=== PATIENT | female | born 2000 | race Caucasian/White ===

== ENCOUNTER 2018-05-09 19:24 | Emergency (ER) | payer MEDICAID ==
--- NOTE | 2018-05-09 20:45 | ER Document Report ---
ED Medical Screen (RME) - General Chief Complaint: Leg Pain Stated Complaint: VAGINAL BLEEDING Time Seen by Provider: 05/09/18 20:40 Mode of Arrival: Ambulatory Information source: Patient Notes: 18-year-old female was noted to be presents with complaints of right lower extremity swelling. Patient moved down here 2 weeks ago from [place] by bus. Patient also notes she got a sunburn and the pain is worse in her foot and on her chaidez I have greeted and performed a rapid initial assessment of this patient. A comprehensive ED assessment and evaluation of the patient, analysis of test results and completion of the medical decision making process will be conducted by additional ED providers. PHYSICAL EXAMINATION: GENERAL: Well-appearing, well-nourished and in no acute distress. HEAD: Atraumatic, normocephalic. EYES: Pupils equal round extraocular movements intact, conjunctiva are normal. ENT: Nares patent NECK: Normal range of motion LUNGS: No respiratory distress Musculoskeletal: Normal range of motion NEUROLOGICAL: Bilateral peripheral edema lower extremities right worse than left PSYCH: Normal mood, normal affect. SKIN: Erythema of the bilateral anterior legs secondary to the first-degree sunburn TRAVEL OUTSIDE OF THE U.S. IN LAST 30 DAYS: No - Related Data Allergies/Adverse Reactions: bee venom protein (honey bee) Allergy (Verified 05/09/18 20:32) Cephalosporins Allergy (Verified 05/09/18 20:32) Penicillins Allergy (Verified 05/09/18 20:32) Physical Exam - Vital signs Vitals: Temp Pulse Resp BP Pulse Ox 98.8 F 124 H 20 108/54 L 97 05/09/18 19:30 05/09/18 19:30 05/09/18 19:30 05/09/18 19:30 05/09/18 19:30 Course - Vital Signs Vital signs: Temp Pulse Resp BP Pulse Ox 98.8 F 124 H 20 108/54 L 97 05/09/18 19:30 05/09/18 19:30 05/09/18 19:30 05/09/18 19:30 05/09/18 19:30
--- NOTE | 2018-05-09 21:35 | ER Document Report ---
ED Extremity Problem, Lower - General Chief Complaint: Leg Pain Stated Complaint: VAGINAL BLEEDING Time Seen by Provider: 05/09/18 20:40 Mode of Arrival: Ambulatory Notes: Patient is a 18 year old female, at 17 weeks gestation, that comes emergency department for chief complaint of right lower extremity swelling, swelling started over the past several days, patient also went to the beach about 4 days ago and got a bad sunburn on both legs. Patient denies shortness of breath, vaginal bleeding, abdominal cramping. Patient moved down here 2 weeks ago from [place], is not established with [facility] yet. She takes no daily medications. She denies smoking, history of blood clot. Patient states she has not felt baby moving this afternoon/evening, asking for Doppler. TRAVEL OUTSIDE OF THE U.S. IN LAST 30 DAYS: No - Related Data Allergies/Adverse Reactions: bee venom protein (honey bee) Allergy (Verified 05/09/18 20:32) Cephalosporins Allergy (Verified 05/09/18 20:32) Penicillins Allergy (Verified 05/09/18 20:32) Past Medical History - General Information source: Patient - Social History Smoking Status: Former Smoker Frequency of alcohol use: None Drug Abuse: None Lives with: Family Family History: Reviewed & Not Pertinent Patient has suicidal ideation: No Patient has homicidal ideation: No - Medical History Medical History: Negative Renal/ Medical History: Denies: Hx Peritoneal Dialysis Surgical Hx: Negative - Immunizations Immunizations up to date: Yes Hx Diphtheria, Pertussis, Tetanus Vaccination: Yes Review of Systems - Review of Systems Constitutional: No symptoms reported EENT: No symptoms reported Cardiovascular: See HPI Respiratory: No symptoms reported Gastrointestinal: No symptoms reported Genitourinary: No symptoms reported Female Genitourinary: No symptoms reported Musculoskeletal: See HPI Skin: See HPI Hematologic/Lymphatic: No symptoms reported Neurological/Psychological: No symptoms reported Physical Exam - Vital signs Vitals: Temp Pulse Resp BP Pulse Ox 98.8 F 124 H 20 108/54 L 97 05/09/18 19:30 05/09/18 19:30 05/09/18 19:30 05/09/18 19:30 05/09/18 19:30 - Notes Notes: GENERAL: Alert, interacts well. No acute distress. HEAD: Normocephalic, atraumatic. EYES: Pupils equal, round, and reactive to light. Extraocular movements intact. ENT: Oral mucosa moist, tongue midline. [Nares patent, no nasal septal hematoma , TM's intact.] NECK: Full range of motion. Supple. Trachea midline. LUNGS: Clear to auscultation bilaterally, no wheezes, rales, or rhonchi. No respiratory distress. HEART: Regular rate and rhythm. No murmur ABDOMEN: Soft, non-tender. Non-distended. Bowel sounds present in all 4 quadrants. EXTREMITIES: Moves all 4 extremities spontaneously. Normal distal neurovascular exam. Edema with pitting in the right leg, no significant edema in the left. No notable tenderness to the calf. Negative Homans sign. BACK: no cervical, thoracic, lumbar midline tenderness. No saddle anesthesia, normal distal neurovascular exam. NEUROLOGICAL: Alert and oriented x3. Normal speech. [cranial nerves II through XII grossly intact]. PSYCH: Normal affect, normal mood. SKIN: Sunburns noted with very erythematous skin but no blistering, induration, fluctuance, or evidence of infection. Some humphrey noted mainly over the face, back, and lower legs. Course - Re-evaluation Re-evalutation: Physical exam shows right lower extremity swelling with sunburn, no significant abnormality other than sunburn and minimal edema in the left lower extremity. No shortness of breath or chest pain. No abdominal pain or vaginal bleeding reported. heart tones in the 150s. Vital signs rechecked, initially patient was tachycardic, this resolved without intervention. Not tachycardic on my exam. Venous Doppler shows no clot or abnormality. Discussed results with patient. Discussed lower extremity swelling, recommendations, sunburn care, follow-up, and return precautions. Discussed this with significant other as well. They state understanding and agreement. - Vital Signs Vital signs: Temp Pulse Resp BP Pulse Ox 98.1 F 83 16 111/48 L 100 05/09/18 23:03 05/09/18 23:03 05/09/18 23:03 05/09/18 23:03 05/09/18 23:03 Discharge - Discharge Clinical Impression: Swelling of lower extremity, Sunburn Qualifiers: Weeks of gestation: unspecified Qualified Code(s): Z34.90 - Encounter for supervision of normal , unspecified, unspecified trimester Condition: Stable Disposition: HOME, SELF-CARE Additional Instructions: The ultrasound does not show clot or any obvious abnormality. The Doppler shows good heart tones. Elevate your legs, use topical therapies for sunburn, take Tylenol for pain. Symptoms should resolve with time. Follow-up with [facility] referral placed. Call for first appointment. Return if you worsen including developing fever, abdominal pain, vaginal bleeding, severe swelling, shortness of breath, or any other concerning or worsening symptoms. Referrals: [facility] [Provider Group] - Follow up as needed
--- NOTE | 2018-05-09 22:30 | RADIOLOGY REPORT (SQ) ---
EXAM DESCRIPTION: VENOUS UNILATERAL LOWER COMPLETED DATE/TIME: 05/09/2018 10:23 pm REASON FOR STUDY: RLE edema, COMPARISON: None. TECHNIQUE: Dynamic and static moy scale and color images acquired of the right leg venous system. S elected spectral images acquired with additional compression and augmentation maneuvers. The contrala teral common femoral vein and saphenofemoral junction were also imaged. Images stored on PACS. LIMITATIONS: None. FINDINGS: COMMON FEMORAL: Normal phasicity, compression and augmentation. No visualized echogenic ma terial on moy scale. No defects on color images. FEMORAL: Normal compression and augmentation. No visualized echogenic material on moy scale. No defe cts on color images. POPLITEAL: Normal compression, augmentation. No visualized echogenic material on moy scale. No defec ts on color images. CALF VESSELS: Normal compression, augmentation. No visualized echogenic material on moy scale. No de fects on color images. GSV and SSV: Normal compression, augmentation. No visualized echogenic material on moy scale. No def ects on color images. ANY DEEP VENOUS INSUFFICIENCY: Not evaluated. ANY EVIDENCE OF POPLITEAL CYST: No. OTHER: No other significant finding. CONTRALATERAL COMMON FEMORAL VEIN AND SAPHENOFEMORAL JUNCTION: Normal phasicity, compression and augmentation. No visualized echogenic material on moy scale. No de fects on color images. IMPRESSION: NO EVIDENCE DVT OR SVT IN THE RIGHT LEG. TECHNICAL DOCUMENTATION: JOB ID: [id number] [employer]- All Rights Reserved Reading location - IP/workstation name: [email or web address]
[2018-05-09 23:04] VITALS: BP 111/48
== END 2018-05-09 23:05 | disposition home or self-care (01) ==
LOC: ER 19:24
DX: Z34.90 Encounter for supervision of normal pregnancy, unspecified, unspecified trimester (principal); L55.9 Sunburn, unspecified; M79.89 Other specified soft tissue disorders; Z3A.17 17 weeks gestation of pregnancy; Z87.891 Personal history of nicotine dependence
CPT/HCPCS: 93971; 99284

== ENCOUNTER 2018-10-10 18:39 | Outpatient (CLI) | payer MEDICAID ==
[2018-10-10 19:46] LABS: APPEARANCE,URINE SLIGHTLY-CLOUDY; BILIRUBIN,URINE NEGATIVE (NEGATIVE); COLOR,URINE AMBER; GLUCOSE, URINE NEGATIVE (NEGATIVE); KETONES,URINE NEGATIVE (NEGATIVE); LEUKOCYTE ESTERASE,URINE NEGATIVE (NEGATIVE); NITRITE,URINE NEGATIVE (NEGATIVE); PROTEIN,URINE 30 mg/dL (NEGATIVE); URINE SPECIFIC GRAVITY 1.031
[2018-10-10 20:00] LABS: URINE AMPHETAMINES SCREEN NEGATIVE; URINE BARBITURATES SCREEN NEGATIVE; URINE BENZODIAZEPINES SCREEN NEGATIVE; URINE COCAINE SCREEN NEGATIVE; URINE MARIJUANA (THC) SCREEN NEGATIVE; URINE METHADONE SCREEN NEGATIVE; URINE PHENCYCLIDINE SCREEN NEGATIVE
[2018-10-10] MEDS ORDERED: HYDROXYZINE PAMOATE 50 MG CAPSULE ONE (21:17)
[2018-10-10] MEDS ORDERED: HYDROXYZINE PAMOATE 50 MG CAPSULE PO ONE (21:25)
--- NOTE | 2018-10-10 21:48 | Non Stress Test Report ---
Non Stress Test Datetime Report Generated by CPN: 10/10/2018 21:48 DEMOGRAPHIC EGA NST: 38.3 INDICATION Indication for Study: Ordered by Provider MONITORING Monitor Explained: Monitor Explained; Test Explained; Patient Verbalized Understanding Time on Monitor: 10/10/2018 19:27 Time off Monitor: 10/10/2018 20:04 NST Duration: 37 NST INTERVENTIONS NST Interventions: PO Hydration; Reposition Patient Physician Notified NST: Dr. Wood BABY A: [id number] BABY A Movement : Present Contraction Frequency : none FHR Baseline : 140 Accelerations : 15X15 Decelerations : None Variability : Moderate 6-25bpm NST Review: Meets Criteria for Reactive NST NST Review and Verified By : LISET ISBELL Results: Reactive NST REPORT Report Trigger: Send Report
== END 2018-10-10 21:23 | disposition home or self-care (01) ==
LOC: LC 18:39
PROVIDERS: ATTEND Obstetrics & Gynecology
PROC: 4A1HXCZ Monitoring of Products of Conception, Cardiac Rate, External Approach (ICD-10-PCS; principal; 2018-10-10)
DX: Z34.93 Encounter for supervision of normal pregnancy, unspecified, third trimester (principal); Z3A.38 38 weeks gestation of pregnancy
CPT/HCPCS: 59025; 81005; 80307; J3490

== ENCOUNTER 2018-10-19 07:21 | Outpatient (CLI) | payer MEDICAID ==
[2018-10-19 08:42] LABS: URINE AMPHETAMINES SCREEN NEGATIVE; URINE BARBITURATES SCREEN NEGATIVE; URINE BENZODIAZEPINES SCREEN NEGATIVE; URINE COCAINE SCREEN NEGATIVE; URINE MARIJUANA (THC) SCREEN NEGATIVE; URINE METHADONE SCREEN NEGATIVE; URINE PHENCYCLIDINE SCREEN NEGATIVE
--- NOTE | 2018-10-19 08:48 | Non Stress Test Report ---
Non Stress Test Datetime Report Generated by CPN: 10/19/2018 08:48 DEMOGRAPHIC EGA NST: 39.5 INDICATION Indication for Study: Other Indication for Study (NST) Other: LABOR CHECK MONITORING Monitor Explained: Monitor Explained; Test Explained; Patient Verbalized Understanding Time on Monitor: 10/19/2018 07:40 Time off Monitor: 10/19/2018 08:41 NST Duration: 61 NST INTERVENTIONS NST Interventions: PO Hydration; Reposition Patient BABY A: [id number] BABY A Movement : Present Contraction Frequency : 4-7 FHR Baseline : 135 Accelerations : 15X15 Decelerations : None Variability : Moderate 6-25bpm NST Review: Meets Criteria for Reactive NST NST Review and Verified By : Thu Camp RNC NST Results: Reactive NST REPORT Report Trigger: Send Report
== END 2018-10-19 08:49 | disposition home or self-care (01) ==
LOC: LC 07:21
PROVIDERS: ATTEND Obstetrics & Gynecology
PROC: 4A1HXCZ Monitoring of Products of Conception, Cardiac Rate, External Approach (ICD-10-PCS; principal; 2018-10-19)
DX: O47.1 False labor at or after 37 completed weeks of gestation (principal); Z3A.39 39 weeks gestation of pregnancy
CPT/HCPCS: 59025; 80307

== ENCOUNTER 2018-12-29 13:31 | Emergency (ER) | payer MEDICAID ==
[2018-12-29 13:50] VITALS: BP 109/57
[2018-12-29] MEDS ORDERED: CLINDAMYCIN HCL 150 MG CAPSULE PO ONE (15:22)
[2018-12-29] MEDS ORDERED: IBUPROFEN 800 MG TABLET PO ONE (15:22)
--- NOTE | 2018-12-29 15:27 | ER Document Report ---
ED Oral Problem - General Chief Complaint: Toothache Stated Complaint: MOUTH PAIN Time Seen by Provider: 12/29/18 14:37 Mode of Arrival: Ambulatory Information source: Patient Notes: 18-year-old female presented to ED for complaint of dental pain to the upper and lower teeth. The front 4 teeth on the upper jaw a very decayed with no enamel at the gum lines. She states she called the dentist and they told her she needed to come in and get antibiotics before she came in to the dentist. She has a tooth to the lower left jaw it is also has no an animal. 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 Patient is alert oriented respirations regular and unlabored speaking in full sentences. TRAVEL OUTSIDE OF THE U.S. IN LAST 30 DAYS: No - HPI Patient complains to provider of: Toothache Onset: Other - Couple weeks Onset: Gradual Quality of pain: Sharp, Throbbing Severity: Moderate Pain Level: 4 Associated symptoms: Jaw pain, Toothache Worsened by: Cold Relieved by: Nothing Similar symptoms previously: Yes Recently seen / treated by doctor/dentist: No - Related Data Allergies/Adverse Reactions: bee venom protein (honey bee) Allergy (Verified 12/29/18 13:45) Cephalosporins Allergy (Verified 12/29/18 13:45) Penicillins Allergy (Verified 12/29/18 13:45) peroxcide Allergy (Uncoded 12/29/18 13:45) Past Medical History - General Information source: Patient - Social History Smoking Status: Never Smoker Chew tobacco use (# tins/day): No Frequency of alcohol use: None Drug Abuse: None Lives with: Family Family History: Reviewed & Not Pertinent Patient has suicidal ideation: No Patient has homicidal ideation: No - Past Medical History Cardiac Medical History: Reports: None Pulmonary Medical History: Reports: None EENT Medical History: Reports: Other - Dental pain Neurological Medical History: Reports: None Endocrine Medical History: Reports: None Renal/ Medical History: Reports: None Malignancy Medical History: Reports: None GI Medical History: Reports: None Musculoskeletal Medical History: Reports None Skin Medical History: Reports None Psychiatric Medical History: Reports: None Traumatic Medical History: Reports: None Infectious Medical History: Reports: None Surgical Hx: Negative Past Surgical History: Reports: None - Immunizations Immunizations up to date: Yes Hx Diphtheria, Pertussis, Tetanus Vaccination: Yes Review of Systems - Review of Systems Constitutional: No symptoms reported EENT: Ear pain, Mouth pain, Mouth swelling, Dental problem Cardiovascular: No symptoms reported Respiratory: No symptoms reported Gastrointestinal: No symptoms reported Genitourinary: No symptoms reported Female Genitourinary: No symptoms reported Musculoskeletal: No symptoms reported Skin: No symptoms reported Hematologic/Lymphatic: No symptoms reported Neurological/Psychological: No symptoms reported Physical Exam - Vital signs Vitals: Temp Pulse Resp BP Pulse Ox 98.7 F 89 16 109/57 L 97 12/29/18 13:48 12/29/18 13:48 12/29/18 13:48 12/29/18 13:48 12/29/18 13:48 Interpretation: Normal - General General appearance: Appears well, Alert - HEENT Head: Normocephalic, Atraumatic Eyes: Normal Pupils: PERRL Ears: Normal External canal: Normal Tympanic membrane: Normal Sinus: Normal Nasal: Normal Mouth/Lips: Caries Mucous membranes: Normal Teeth diagram: 1 - 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 with mild swelling to the gums 2 - Loss of enamel to the tooth with gum disease and mild swelling to the gums Pharynx: Normal Neck: Anterior cervical chain - Respiratory Respiratory status: No respiratory distress Chest status: Nontender Breath sounds: Normal Chest palpation: Normal - Cardiovascular Rhythm: Regular Heart sounds: Normal auscultation Murmur: No - Abdominal Inspection: Normal Distension: No distension Bowel sounds: Normal Tenderness: Nontender Organomegaly: No organomegaly - Back Back: Normal, Nontender - Extremities General upper extremity: Normal inspection, Nontender, Normal color, Normal ROM, Normal temperature General lower extremity: Normal inspection, Nontender, Normal color, Normal ROM, Normal temperature, Normal weight bearing. No: Rafael's sign - Neurological Neuro grossly intact: Yes Cognition: Normal Orientation: AAOx4 Kathya Coma Scale Eye Opening: Spontaneous Kathya Coma Scale Verbal: Oriented Kathya Coma Scale Motor: Obeys Commands Kathya Coma Scale Total: 15 Speech: Normal Motor strength normal: LUE, RUE, LLE, RLE Sensory: Normal - Psychological Associated symptoms: Normal affect, Normal mood - Skin Skin Temperature: Warm Skin Moisture: Dry Skin Color: Normal Course - Re-evaluation Re-evalutation: 12/29/18 15:26 Presentation is most consistent with likely an infected tooth. Airway is patent. Vitals within normal limits. Patient is able swallow without any difficulty. There is no significant facial swelling. No evidence of Mohit angina, apical abscess, or airway obstruction. Patient will be started on antibiotics. I've instructed to follow-up with dentistry as earliest ability for definitive management. At this time will discharge with return precautions and follow-up recommendations. Verbal discharge instructions given a the bedside and opportunity for questions given. Medication warnings reviewed. Patient is in agreement with this plan and has verbalized understanding of return precautions and the need for primary care follow-up in the next 24-72 hours. - Vital Signs Vital signs: Temp Pulse Resp BP Pulse Ox 98.7 F 89 16 109/57 L 97 12/29/18 13:48 12/29/18 13:48 12/29/18 13:48 12/29/18 13:48 12/29/18 13:48 Discharge - Discharge Clinical Impression: Pain due to dental caries Condition: Stable Disposition: HOME, SELF-CARE Instructions: Family Physicians / Practices Additional Instructions: TOOTHACHE: Your pain is due to dental decay. The tooth must be repaired in order for you to feel better. You will, therefore, be referred to a dentist. We do not have dentists on the staff at [facility]. Severe swelling or drainage around a tooth usually means a dental abscess. This also requires evaluation and treatment by the dentist, but antibiotics may be prescribed while awaiting dental treatment. You should be rechecked immediately if you develop major swelling of the face, increasing pain, a lump in the jaw or gums, headache, difficulty swallowing, or fever. CLINDAMYCIN: You have been given a prescription for the antibiotic clindamycin. It is often prescribed for infections in the mouth, such as dental infections or abscesses, and for skin infections due to MRSA. It's important that you take all the medication, unless instructed otherwise by your physician. Failure to complete the entire course can result in relapse of your condition. Common side effects of antibiotics include nausea, intestinal cramping, or diarrhea. Women may develop vaginal yeast infections, and babies can get yeast (thrush) in the mouth following the use of antibiotics. Contact your physician if you develop significant side effects from this medication. Allergy to this antibiotic can result in hives, wheezing, faintness, or itching. If symptoms of allergy occur, stop the medication and call the doctor. Ibuprofen Ibuprofen is an excellent, safe drug for pain control. In addition, it has potent antiinflammatory effects which are beneficial, especially in the treatment of injuries, arthritis, or tendonitis. It's best to take ibuprofen with food. Persons with ulcer disease or allergy to aspirin should notify their physician of this before taking ibuprofen. Take the medication exactly as prescribed. Don't take additional doses unless instructed to do so by your doctor. If you develop wheezing, shortness of breath, hives, faintness, stomach pain, vomiting, or dark black stools, return for re-evaluation at once. Salt and soda solution 1 quart of water 1 tablespoon of salt 1 teaspoon of baking soda Mixed 3 ingredients together and boil for 1 minute Placed in a covered quart jar Use 1/2 ounce of cold solution to gargle 3 times a day FOLLOW-UP CARE: You have been referred for follow-up care to the dentists listed below. Call the dentists office for an appointment as you were instructed or within the next two days. If you experience worsening or a significant change in your symptoms, notify the physician immediately or return to the Emergency Department at any time for re-evaluation. [facility] [address] [place], [place] [facility] [address] [place] [address] [facility] [address] [facility] [address] [facility] [address] [facility] [place] [address] [facility]. [email or web address] [address] [place] [address] Thursday- 8:00am to 5:00 pm Will see patients from other [facility]. Charges based on income and family size and accepts Medicare, Medicaid, and Insurances Will pull molars [facility] [address] [address] Hours of Operation 8:00 am - 4:30 pm weekdays The following dental offices accept Medicaid: [facility] [address] Dr. Daniels Dr. Benavides Dr. Zambrano Isael Melendez, Steven, and Francia oral surgery Dr. Suero ([place]) Dr. Aquino ([place]) [facility] Drs. Lang ([place]) Dr. Dmuas ([place]) [facility] Dr. Riley ([place]) Drs. Xavier and ([place]) Medicaid Care Line Prescriptions: Clindamycin HCl 300 mg PO Q6 #28 capsule
== END 2018-12-29 15:38 | disposition home or self-care (01) ==
LOC: ER 13:31
DX: K02.9 Dental caries, unspecified (principal); K06.9 Disorder of gingiva and edentulous alveolar ridge, unspecified; K08.89 Other specified disorders of teeth and supporting structures; Z91.030 Bee allergy status; Z88.1 Allergy status to other antibiotic agents; Z88.0 Allergy status to penicillin; Z88.8 Allergy status to other drugs, medicaments and biological substances
CPT/HCPCS: 99282; J3490 ×2

== ENCOUNTER 2019-03-17 16:32 | Emergency (ER) | payer SELFPAY ==
[2019-03-17 16:41] VITALS: BP 113/55
--- NOTE | 2019-03-17 17:14 | ER Document Report ---
HPI - HPI Patient complains to provider of: Dental decay Time Seen by Provider: 03/17/19 17:07 Onset: Other Onset/Duration: Persistent Severity: Severe Pain Level: 5 Context: She presents to the emergency department with widespread dental decay. Reports increased pain to her front teeth. She reports pain with hot or cold. She denies fever vomiting diarrhea. She reports she has contacted the [facility] and they have scheduled her appointment at the end of this month. But she cannot take the pain. She denies fever vomiting diarrhea. Associated Symptoms: None Exacerbated by: Other - heat/cool sensitive Relieved by: Denies Similar symptoms previously: Yes Recently seen / treated by doctor: No - CONSTITUTIONAL Constitutional: DENIES: Fever, Chills - EENT EENT: DENIES: Sore Throat, Ear Pain, Eye problems - NEURO Neurology: DENIES: Headache, Weakness, Vision blurred, Dizzinesss / Vertigo - CARDIOVASCULAR Cardiovascular: DENIES: Chest pain - RESPIRATORY Respiratory: DENIES: Trouble Breathing, Coughing - GASTROINTESTINAL Gastrointestinal: DENIES: Abdominal Pain, Black / Bloody Stools - URINARY Urinary: DENIES: Dysuria, Urgency, Frequency - REPRODUCTIVE Reproductive: DENIES: : - MUSCULOSKELETAL Musculoskeletal: DENIES: Extremity pain Past Medical History - General Information source: Patient - Social History Smoking Status: Never Smoker Chew tobacco use (# tins/day): No Frequency of alcohol use: None Drug Abuse: None Lives with: Family Family History: Reviewed & Not Pertinent Patient has suicidal ideation: No Patient has homicidal ideation: No - Medical History Medical History: Negative Renal/ Medical History: Denies: Hx Peritoneal Dialysis Surgical Hx: Negative - Immunizations Immunizations up to date: Yes Hx Diphtheria, Pertussis, Tetanus Vaccination: Yes Vertical Provider Document - CONSTITUTIONAL Agree With Documented VS: Yes Exam Limitations: No Limitations General Appearance: WD/WN, No Apparent Distress - INFECTION CONTROL TRAVEL OUTSIDE OF THE U.S. IN LAST 30 DAYS: No - HEENT HEENT: Atraumatic, Normocephalic Mouth Diagram: 1 - Widespread dental decay opens mouth without any problems open wide no Mohit's no erythema swelling or pustule - RESPIRATORY Respiratory: Breath Sounds Normal, No Respiratory Distress - CARDIOVASCULAR Cardiovascular: Regular Rate - MUSCULOSKELETAL/EXTREMETIES Musculoskeletal/Extremeties: MAEW - NEURO Level of Consciousness: Awake, Alert, Appropriate Motor/Sensory: No Motor Deficit - DERM Integumentary: Warm, Dry Course - Re-evaluation Re-evalutation: 03/17/19 19:36 [facility] pharmacy contacted for patient to confirm lujan of clindamycin. Patient was instructed on the importance of keeping her follow-up appointment with dental at the end of the month. She verbalized understanding to all instructions. Dictation of this chart was performed using voice recognition software; therefore, there may be some unintended grammatical errors. - Vital Signs Vital signs: Temp Pulse Resp BP Pulse Ox 98.6 F 85 16 113/55 L 100 03/17/19 16:38 03/17/19 16:38 03/17/19 16:38 03/17/19 16:38 03/17/19 16:38 Discharge - Discharge Clinical Impression: Dental decay Condition: Stable Disposition: HOME, SELF-CARE Instructions: Acetaminophen with Codeine ([facility]), [facility], Clindamycin ([facility]), Toothache ([facility]) Additional Instructions: *You have been evaluated for dental pain *Take medications as prescribed *Follow up with the dentist as scheduled *Return to ED for worsening condition, changes, needs Prescriptions: Acetaminophen with Codeine [Tylenol #3 Tablet] 1 each PO Q4HP PRN #20 tablet PRN Reason: Clindamycin HCl 300 mg PO TID #30 capsule
== END 2019-03-17 17:20 | disposition home or self-care (01) ==
LOC: ER 16:32
DX: K02.9 Dental caries, unspecified (principal); K08.89 Other specified disorders of teeth and supporting structures
CPT/HCPCS: 99282

== ENCOUNTER 2019-04-18 15:46 | Emergency (ER) | payer SELFPAY ==
[2019-04-18 15:59] VITALS: BP 149/74
[2019-04-18 17:19] LABS: APPEARANCE,URINE SLIGHTLY-CLOUDY; BILIRUBIN,URINE NEGATIVE (NEGATIVE); COLOR,URINE YELLOW; GLUCOSE, URINE NEGATIVE (NEGATIVE); KETONES,URINE NEGATIVE (NEGATIVE); LEUKOCYTE ESTERASE,URINE SMALL (NEGATIVE); NITRITE,URINE NEGATIVE (NEGATIVE); PROTEIN,URINE NEGATIVE (NEGATIVE); URINE SPECIFIC GRAVITY 1.024; UROBILINOGEN,URINE NEGATIVE mg/dL (<2.0)
[2019-04-18] MEDS ORDERED: ONDANSETRON 4 MG TAB.RAPDIS ONE (18:35)
[2019-04-18] MEDS ORDERED: ONDANSETRON 4 MG TAB.RAPDIS PO ONE (18:35)
--- NOTE | 2019-04-18 18:36 | ER Document Report ---
ED Medical Screen (RME) - General Chief Complaint: Abdominal Pain Stated Complaint: ABDOMINAL PAIN Time Seen by Provider: 04/18/19 18:30 TRAVEL OUTSIDE OF THE [place] IN LAST 30 DAYS: No - HPI Notes: 04/18/19 18:34 Patient is a 19-year-old female G6, P4 with 2 miscarriages who presents complaining of right upper quadrant abdominal pain, nausea/vomiting over the past couple days. Patient states that last episode of vomiting was yesterday. She has been nauseated all day long. Patient does have a Mirena in place and wanted checked for as well. She did have a home test that was positive. She is otherwise urinating normally and having normal bowel movements. No other vaginal discharge, odor, or bleeding. P.o. intake does make the pain worse. Denies GONZALEZ, fever, neck pain, URI, CP, SOB, dysuria, back pain, or rash. I have treated and performed a rapid initial assessment of this patient. A comprehensive ED assessment and evaluation of the patient, analysis of test results and completion of medical decision making process will be conducted by additional ED providers. PHYSICAL EXAMINATION: GENERAL: Well-appearing, well-nourished and in no acute distress. A&Ox4. Answe rs questions appropriately. LUNGS: Breath sounds clear to auscultation bilaterally and equal. No wheezes rales or rhonchi. HEART: Regular rate and rhythm without murmurs, rubs, gallops. ABDOMEN: Soft, nondistended abdomen. No guarding, no rebound. Normal bowel sounds present. No CVA tenderness bilaterally. + RUQ tenderness (cannot elicit thorough abd exam w/o bed, however). - Related Data Allergies/Adverse Reactions: bee venom protein (honey bee) Allergy (Verified 04/18/19 18:31) Cephalosporins Allergy (Verified 04/18/19 18:31) Penicillins Allergy (Verified 04/18/19 18:31) peroxcide Allergy (Uncoded 04/18/19 18:31) Past Medical History Renal/ Medical History: Denies: Hx Peritoneal Dialysis - Immunizations Immunizations up to date: Yes Hx Diphtheria, Pertussis, Tetanus Vaccination: Yes Physical Exam - Vital signs Vitals: Temp Pulse Resp BP Pulse Ox 98.3 F 105 H 18 149/74 H 98 04/18/19 15:58 04/18/19 15:58 04/18/19 15:58 04/18/19 15:58 04/18/19 15:58 Course - Vital Signs Vital signs: Temp Pulse Resp BP Pulse Ox 98.3 F 105 H 18 149/74 H 98 04/18/19 15:58 04/18/19 15:58 04/18/19 15:58 04/18/19 15:58 04/18/19 15:58 - Laboratory Laboratory results interpreted by me: 04/18/19 16:55 Ur Leukocyte Esterase SMALL H
--- NOTE | 2019-04-18 19:17 | RADIOLOGY REPORT (SQ) ---
EXAM DESCRIPTION: U/S ABDOMEN LIMITED W/O DOP COMPLETED DATE/TIME: 04/18/2019 7:04 pm REASON FOR STUDY: RUQ pain, n/v COMPARISON: None. TECHNIQUE: Dynamic and static grayscale images acquired of the right upper quadrant and recorded on PACS. Additional selected color Doppler and spectral images recorded. LIMITATIONS: Study limited due to acoustical interference from fat or from air in the bowel. FINDINGS: PANCREAS: Visualized pancreas and duct normal. Parts of pancreas poorly seen secondary to acoustical interference from fat or from air in the bowel. LIVER: No masses. Echotexture normal. LIVER VASCULATURE: Normal directional flow of the main portal vein and hepatic veins. GALLBLADDER: No stones. Normal wall thickness. No pericholecystic fluid. ULTRASOUND-DETECTED STALLINGS'S SIGN: Negative. INTRAHEPATIC DUCTS AND COMMON DUCT: CBD and intrahepatic ducts normal caliber. No filling defects. INFERIOR VENA CAVA: Normal flow. AORTA: No aneurysm. RIGHT KIDNEY: Normal size. Normal echogenicity. No solid or suspicious masses. No hydronephrosis. No calcifications. PERITONEAL CAVITY AND RIGHT PLEURAL SPACE: No ascites or effusions. OTHER: No other significant finding. IMPRESSION: NORMAL RIGHT UPPER QUADRANT ULTRASOUND. PANCREAS PARTIALLY OBSCURED BY GAS. TECHNICAL DOCUMENTATION: JOB ID: [id number] 2005 [employer]- All Rights Reserved Reading location - IP/workstation name: [email or web address]
[2019-04-18 19:30] LABS: ABSOLUTE BASOPHILS # (AUTO) 0.1 10^3/uL (0.0-0.2); ABSOLUTE LYMPHOCYTES (AUTO) 2.2 10^3/uL (0.5-4.7); ABSOLUTE MONOCYTES (AUTO) 0.4 10^3/uL (0.1-1.4); ABSOLUTE NEUT (AUTO) 7.6 10^3/uL (1.7-8.2); BASOPHILS % (AUTO) 0.7 % (0-2); EOSINOPHILS % (AUTO) 0.4 % (0-6); HEMATOCRIT 36.6 % (36.0-47.0); HEMOGLOBIN 11.8 g/dL (12.0-15.5); LYMPHOCYTES % (AUTO) 21.1 % (13-45); MEAN CORPUSCULAR HEMOGLOBIN 23.2 pg (27.0-33.4); MEAN CORPUSCULAR HGB CONC 32.2 g/dL (32.0-36.0); MEAN CORPUSCULAR VOLUME 72 fl (80-97); PLATELET COUNT 523 10^3/uL (150-450); RED BLOOD COUNT 5.08 10^6/uL (3.72-5.28); RED CELL DISTRIBUTION WIDTH 14.9 % (11.5-14.0); SEGMENTED NEUTROPHILS % (AUTO) 73.8 % (42-78); TOTAL CELLS COUNTED % (AUTO) 100 %; WHITE BLOOD COUNT 10.3 10^3/uL (4.0-10.5)
[2019-04-18 19:45] LABS: ALANINE AMINOTRANSFERASE 34 U/L (9-52); ALBUMIN 4.6 g/dL (3.5-5.0); ALKALINE PHOSPHATASE 75 U/L (38-126); ANION GAP 12 (5-19); ASPARTATE AMINO TRANSFERASE 28 U/L (14-36); BILIRUBIN,DIRECT 0.3 mg/dL (0.0-0.4); BILIRUBIN,TOTAL 0.4 mg/dL (0.2-1.3); BLOOD UREA NITROGEN 16 mg/dL (7-20); CALCIUM 9.9 mg/dL (8.4-10.2); CARBON DIOXIDE 27 mmol/L (22-30); CHLORIDE 105 mmol/L (98-107); GLUCOSE 98 mg/dL (75-110); LIPASE 87.7 U/L (23-300); POTASSIUM 4.5 mmol/L (3.6-5.0); SODIUM 144.1 mmol/L (137-145); TOTAL PROTEIN 7.9 g/dL (6.3-8.2)
== END 2019-04-18 19:45 | disposition left against medical advice (07) ==
LOC: ER 15:46
DX: Z53.21 Procedure and treatment not carried out due to patient leaving prior to being seen by health care provider (principal); R10.9 Unspecified abdominal pain; R10.11 Right upper quadrant pain; R11.2 Nausea with vomiting, unspecified
CPT/HCPCS: 99284; 36415; 83690; 85025; 81025; 80053; 81001; 76705; S0119

== ENCOUNTER 2019-07-03 17:37 | Emergency (ER) | payer SELFPAY ==
[2019-07-03] MEDS ORDERED: CLINDAMYCIN HCL 150 MG CAPSULE PO ONE (19:09)
--- NOTE | 2019-07-03 19:13 | ER Document Report ---
HPI - HPI Time Seen by Provider: 07/03/19 18:50 Pain Level: 5 Context: Patient is a 19-year-old female who presents to the emergency department with a chief complaint of dental pain. Patient reports left upper dental pain for 3 to 4 days. Patient denies facial swelling or fever. Patient states she has been told that she needs to have multiple teeth removed but requires an antibiotic initially. Patient states she plans to follow-up with the [facility]. Patient reports she is taking clindamycin for dental infections in the past. Patient denies difficulty swallowing. Patient reports a history of poor dental decay and dental caries. - REPRODUCTIVE LMP: May 2018 Reproductive: DENIES: : Past Medical History - General Information source: Patient - Social History Smoking Status: Unknown if Ever Smoked Lives with: Spouse/Significant other Family History: Reviewed & Not Pertinent - Past Medical History Cardiac Medical History: Reports: None Pulmonary Medical History: Reports: None EENT Medical History: Reports: None Neurological Medical History: Reports: None Endocrine Medical History: Reports: None Renal/ Medical History: Reports: None. Denies: Hx Peritoneal Dialysis Malignancy Medical History: Reports: None GI Medical History: Reports: None Musculoskeletal Medical History: Reports None Skin Medical History: Reports None Psychiatric Medical History: Reports: None Traumatic Medical History: Reports: None Infectious Medical History: Reports: None Surgical Hx: Negative - Immunizations Immunizations up to date: Yes Hx Diphtheria, Pertussis, Tetanus Vaccination: Yes Vertical Provider Document - CONSTITUTIONAL Agree With Documented VS: Yes Exam Limitations: No Limitations General Appearance: No Apparent Distress - INFECTION CONTROL TRAVEL OUTSIDE OF THE [place] IN LAST 30 DAYS: No - HEENT HEENT: Atraumatic, Normocephalic Mouth Diagram: 1 - Patient has widespead dental decay, + broken tooth noted to the area with erythema noted to the gumline. No obvious abscess. - NECK Neck: Normal Inspection, Supple - RESPIRATORY Respiratory: Breath Sounds Normal, No Respiratory Distress - CARDIOVASCULAR Cardiovascular: Regular Rate, Regular Rhythm - GI/ABDOMEN Gastrointestinal: Abdomen Soft, Abdomen Non-Tender - MUSCULOSKELETAL/EXTREMETIES Musculoskeletal/Extremeties: FROM, No Edema - NEURO Level of Consciousness: Awake, Alert, Appropriate - DERM Integumentary: Warm, Dry, No Rash Course - Vital Signs Vital signs: Temp Pulse Resp BP Pulse Ox 98.2 F 89 20 115/59 L 99 07/03/19 17:41 07/03/19 17:41 07/03/19 17:41 07/03/19 17:41 07/03/19 17:41 Discharge - Discharge Clinical Impression: Dental infection, Dental caries Condition: Stable Disposition: HOME, SELF-CARE Instructions: Clindamycin ([facility]) Additional Instructions: Today you are seen in the emergency department for dental infection. At this time there is no obvious signs of an abscess that needs to be drained. You will be placed on clindamycin which is an antibiotic. You have stated that you been on this antibiotic before with no allergic reaction. Please take this medication for its full course. Please return to the emergency department if you develop fever, worsening pain, facial swelling. Please follow-up with the [facility] dental clinic. Dental Infection or Abscess You have an infection, perhaps an abscess (pus formation) of the gum around one of your teeth, which is probably decayed. If there is an abscess, it may drain on its own or it may need to be opened or lanced. Severe swelling or drainage around a tooth usually means a deep dental abscess which usually requires evaluation and treatment by a dentist or oral surgeon. Antibiotics may be prescribed while awaiting dental treatment. If you develop high fever with chills, worsening pain, or increasing swelling in the area, see a dentist or oral surgeon immediately or return to the Emergency Department immediately. Prescriptions: Clindamycin HCl 300 mg PO TID 10 Days #30 capsule Forms: Smoking Cessation Education Referrals: [facility] [Provider Group] - Follow up as needed [facility] [Provider Group] - Follow up as needed
[2019-07-03 19:26] VITALS: BP 118/72
== END 2019-07-03 19:28 | disposition home or self-care (01) ==
LOC: ER 17:37
DX: K04.7 Periapical abscess without sinus (principal); K02.9 Dental caries, unspecified
CPT/HCPCS: 99282

== ENCOUNTER 2020-01-01 20:58 | Emergency (ER) | payer SELFPAY ==
[2020-01-01 21:14] VITALS: BP 120/71
== END 2020-01-01 23:45 | disposition left against medical advice (07) ==
LOC: ER 20:58
DX: Z53.21 Procedure and treatment not carried out due to patient leaving prior to being seen by health care provider (principal); J02.9 Acute pharyngitis, unspecified

== ENCOUNTER 2020-01-17 18:55 | Emergency (ER) | payer SELFPAY ==
--- NOTE | 2020-01-17 20:39 | ER Document Report ---
ED Medical Screen (RME) - General Chief Complaint: Sore Throat Stated Complaint: SORE THROAT,FEVER,LIGHTHEADED Time Seen by Provider: 01/17/20 20:34 Mode of Arrival: Ambulatory Information source: Patient Notes: 19-year-old female presents with complaints of cold symptoms cough congestion chest feels heavy sore throat for the past few days. No complaints of fever vomiting diarrhea. Did not receive the flu vaccine. Patient speaks in a clear voice good airway. No known exposure to strep. I have greeted and performed a rapid initial assessment of this patient. A comprehensive ED assessment and evaluation of the patient, analysis of test results and completion of the medical decision making process will be conducted by additional ED providers. TRAVEL OUTSIDE OF THE [place] IN LAST 30 DAYS: No - Related Data Allergies/Adverse Reactions: bee venom protein (honey bee) Allergy (Verified 04/18/19 18:31) Cephalosporins Allergy (Verified 04/18/19 18:31) Penicillins Allergy (Verified 04/18/19 18:31) peroxcide Allergy (Uncoded 04/18/19 18:31) Past Medical History Renal/ Medical History: Denies: Hx Peritoneal Dialysis - Immunizations Immunizations up to date: Yes Hx Diphtheria, Pertussis, Tetanus Vaccination: Yes Physical Exam - Vital signs Vitals: Temp Pulse Resp BP Pulse Ox 99.1 F 112 H 16 120/76 98 01/17/20 18:59 01/17/20 18:59 01/17/20 18:59 01/17/20 18:59 01/17/20 18:59 Course - Vital Signs Vital signs: Temp Pulse Resp BP Pulse Ox 99.1 F 112 H 16 120/76 98 01/17/20 18:59 01/17/20 18:59 01/17/20 18:59 01/17/20 18:59 01/17/20 18:59
[2020-01-17 21:05] LABS: APPEARANCE,URINE SLIGHTLY-CLOUDY; BILIRUBIN,URINE NEGATIVE (NEGATIVE); COLOR,URINE YELLOW; GLUCOSE, URINE NEGATIVE (NEGATIVE); KETONES,URINE NEGATIVE (NEGATIVE); LEUKOCYTE ESTERASE,URINE TRACE (NEGATIVE); NITRITE,URINE NEGATIVE (NEGATIVE); PROTEIN,URINE NEGATIVE (NEGATIVE); URINE SPECIFIC GRAVITY 1.027
[2020-01-17 21:06] LABS: ADD MANUAL MICROSCOPIC YES
--- NOTE | 2020-01-17 21:19 | RADIOLOGY REPORT (SQ) ---
EXAM DESCRIPTION: XR CHEST 2 VIEWS COMPLETED DATE/TME: 01/17/2020 20:37 CLINICAL HISTORY: 19 years, Female, cough COMPARISON: None. NUMBER OF VIEWS: 2 TECHNIQUE: Frontal and lateral radiographs were obtained LIMITATIONS: None. FINDINGS: Cardiac and mediastinal contours are normal. Lungs are overall clear. No pleural effusion or pneumothorax. IMPRESSION: No acute disease. copyright 2010 [employer]- All Rights Reserved
[2020-01-17 21:21] LABS: A TYPE INFLUENZA AG NEGATIVE (NEGATIVE); B INFLUENZA AG NEGATIVE (NEGATIVE)
[2020-01-17] MEDS ORDERED: AMOXICILLIN TRIHYDRATE 500 MG CAPSULE PO ONE (21:59)
[2020-01-17] MEDS ORDERED: DEXAMETHASONE SOD PHOS INJ 10 MG/1 ML VIAL IM ONE (21:59)
--- NOTE | 2020-01-17 22:03 | ER Document Report ---
HPI - HPI Time Seen by Provider: 01/17/20 20:34 Pain Level: 1 Context: Patient is a 19-year-old female that comes to the emergency department for generalized sick complaints. She states she has had congestion and sore throat for over a week now, she states this is worsened, now she has developing sinus pain, spiking fever up to 103 today, cough, body aches. She denies nausea or vomiting, abdominal pain, chest pain, headache. She is able to eat/swallow without difficulty. She has not been vaccinated for influenza, she states her daughter is also sick. She denies any daily medications, smoking, recreational drugs. - CONSTITUTIONAL Constitutional: DENIES: Fever, Chills - EENT EENT: REPORTS: Sore Throat - REPRODUCTIVE LMP: December 29 Reproductive: DENIES: : Past Medical History - General Information source: Patient - Social History Smoking Status: Current Every Day Smoker Chew tobacco use (# tins/day): No Frequency of alcohol use: None Drug Abuse: None Lives with: Family Family History: Reviewed & Not Pertinent Patient has suicidal ideation: No Patient has homicidal ideation: No Renal/ Medical History: Denies: Hx Peritoneal Dialysis Surgical Hx: Negative - Immunizations Immunizations up to date: Yes Hx Diphtheria, Pertussis, Tetanus Vaccination: Yes Vertical Provider Document - CONSTITUTIONAL General Appearance: WD/WN, Obese. negative: No Apparent Distress - Patient appears slightly ill-appearing and uncomfortable but she is not in severe distress - INFECTION CONTROL TRAVEL OUTSIDE OF THE [place] IN LAST 30 DAYS: No - HEENT HEENT: Atraumatic, Normocephalic. negative: Normal ENT Exam - Oropharyngeal exam shows erythema but no swelling, no exudates. Airways patent, no abscess noted. Unremarkable ears on exam. Patient has sinus congestion, swollen t urbinates, nasal drainage, and tender sinuses especially in the bilateral maxillary areas. Unremarkable eyes. - NECK Neck: Other - Mild anterior cervical adenopathy bilaterally - RESPIRATORY Respiratory: Breath Sounds Normal, No Respiratory Distress, Chest Non-Tender. negative: Wheezing - CARDIOVASCULAR Cardiovascular: Regular Rate, Regular Rhythm. negative: Tachycardia - GI/ABDOMEN Gastrointestinal: Abdomen Soft, Abdomen Non-Tender. negative: Abdomen Tender - BACK Back: Normal Inspection - MUSCULOSKELETAL/EXTREMETIES Musculoskeletal/Extremeties: MAEW, FROM, Non-Tender - NEURO Level of Consciousness: Awake, Alert, Appropriate Motor/Sensory: No Motor Deficit, No Sensory Deficit - DERM Integumentary: Warm, Dry, No Rash Course - Re-evaluation Re-evalutation: Work-up from triage reviewed, and influenza and strep are negative, urinalysis unremarkable, test negative, chest x-ray negative. Patient's evaluation is consistent with a viral illness which is been present for over a week now, she appears to have developed a secondary sinusitis with notably tender maxillary sinuses and nasal drainage. Patient is reporting spiking fevers with this as well. She is not tachycardic on my exam, she is not hypoxic, she is not in any distress, she has no nuchal rigidity or reported headache. Patient will be treated for the sinus infection, discussed options, patient wants to be treated with Decadron for her pharyngitis and lymphadenopathy. Discussed close follow-up and return precautions. Patient states understanding and agreement. Stable at time of discharge. - Vital Signs Vital signs: Temp Pulse Resp BP Pulse Ox 99.1 F 112 H 16 120/76 98 01/17/20 18:59 01/17/20 18:59 01/17/20 18:59 01/17/20 18:59 01/17/20 18:59 - Laboratory Laboratory results interpreted by me: 01/17/20 20:41 Urine Urobilinogen 2.0 H Ur Leukocyte Esterase TRACE H Discharge - Discharge Clinical Impression: Cough Upper respiratory infection Qualifiers: URI type: unspecified URI Qualified Code(s): J06.9 - Acute upper respiratory infection, unspecified Sinusitis Qualifiers: Sinusitis location: maxillary Chronicity: acute Recurrence: non-recurrent Qualified Code(s): J01.00 - Acute maxillary sinusitis, unspecified Pharyngitis Qualifiers: Pharyngitis/tonsillitis etiology: unspecified etiology Qualified Code(s): J02.9 - Acute pharyngitis, unspecified Condition: Stable Disposition: HOME, SELF-CARE Additional Instructions: Your strep and influenza tests are negative, your chest x-ray is clear, your test is negative. Your evaluation is consistent with a viral upper respiratory infection and a secondary developing sinus infection. You have been medicated initially, complete antibiotics, I recommend the nasal steroid as prescribed, you can take 600 mg of ibuprofen and 1000 mg of Tylenol every 6 hours together for fever, body aches, chills. Drink plenty of fluids and rest. Other interventions including neti pot and Benadryl at night can help. Symptoms should gradually resolve. Follow-up with primary care. Return if you worsen including severe headache, vomiting, difficulty breathing, continued spiking fevers, or any other concerning symptoms. Prescriptions: Amoxicillin Trihydrate [Amoxil 500 mg Capsule] 1,000 mg PO BID 7 Days #28 capsule Fluticasone Propionate [Flonase Nasal [place] 50 Mcg/[place] 16 gm] 2 sprays NASL Q12 #1 inhaler
[2020-01-17 23:01] VITALS: BP 128/67
== END 2020-01-17 23:00 | disposition home or self-care (01) ==
LOC: ER 18:55
DX: J02.9 Acute pharyngitis, unspecified (principal); J06.9 Acute upper respiratory infection, unspecified; J01.00 Acute maxillary sinusitis, unspecified; R50.9 Fever, unspecified; R05 Cough; R59.0 Localized enlarged lymph nodes; F17.200 Nicotine dependence, unspecified, uncomplicated; E66.9 Obesity, unspecified
CPT/HCPCS: 99283; 96372; 87070; 87880; 81025; 81001; 87804; 71046; J1100

== ENCOUNTER 2020-04-10 18:27 | Emergency (ER) | payer SELFPAY ==
[2020-04-10] MEDS ORDERED: DIPH/PERTUSS(ACELL)/TETANUS VAC/PF 0.5 ML SYR (>=10YO) IM ONE (19:04)
--- NOTE | 2020-04-10 19:07 | ER Document Report ---
ED Medical Screen (RME) - General Chief Complaint: Cat Bite Stated Complaint: CAT BITE/RIGHT HAND Time Seen by Provider: 04/10/20 18:58 TRAVEL OUTSIDE OF THE [place] IN LAST 30 DAYS: No - HPI Notes: 04/10/20 19:04 20-year-old female with a history of PCOS presents to the emergency room for evaluation of right hand pain after a stray cat and her kitten bit her today on her hand. Patient states she is unsure when her last tetanus was, has not had any shots since she was early teenager. Last menstrual cycle was 03/06/2020, states she did have a positive test. Patient states the stray cat is underneath her house, she was trying to help the kittens and the mom came in bit her for handling the kitten. No fevers or chills. No nausea vomiting or diarrhea. Eating and drinking without any issues. I have greeted and performed a rapid initial assessment of this patient. A comprehensive ED assessment and evaluation of the patient, analysis of test results and completion of the medical decision making process will be conducted by additional ED providers. PHYSICAL EXAMINATION: GENERAL: Well-appearing, well-nourished and in no acute distress. CV: s1, s2 regular LUNGS: No respiratory distress Musculoskeletal: Normal range of motion NEUROLOGICAL: Normal speech, normal gait. SKIN: Warm, Dry, normal turgor, no rashes or lesions noted. right hand with puncture wounds to right index finger and right hand. no open wounds or changes. - Related Data Allergies/Adverse Reactions: bee venom protein (honey bee) Allergy (Verified 04/18/19 18:31) Cephalosporins Allergy (Verified 04/18/19 18:31) peroxcide Allergy (Uncoded 04/18/19 18:31) Past Medical History - Social History Frequency of alcohol use: None Drug Abuse: None Renal/ Medical History: Denies: Hx Peritoneal Dialysis - Immunizations Immunizations up to date: Yes Hx Diphtheria, Pertussis, Tetanus Vaccination: Yes Physical Exam - Vital signs Vitals: Temp Pulse Resp BP Pulse Ox 98.5 F 105 H 18 131/57 H 98 04/10/20 18:42 04/10/20 18:42 04/10/20 18:42 04/10/20 18:42 04/10/20 18:42 Course - Vital Signs Vital signs: Temp Pulse Resp BP Pulse Ox 98.5 F 105 H 18 131/57 H 98 04/10/20 18:58 04/10/20 18:42 04/10/20 18:42 04/10/20 18:42 04/10/20 18:42
--- NOTE | 2020-04-10 19:28 | RADIOLOGY REPORT (SQ) ---
EXAM DESCRIPTION: HAND RIGHT 3 VIEWS IMAGES COMPLETED DATE/TIME: 04/10/2020 7:21 pm REASON FOR STUDY: right hand pain s/p cat bite COMPARISON: None. EXAM PARAMETERS: NUMBER OF VIEWS: Three views. TECHNIQUE: AP, lateral and oblique radiographic images acquired of the right hand. LIMITATIONS: None. FINDINGS: MINERALIZATION: Normal. BONES: No acute fracture or dislocation. No worrisome bone lesions. JOINTS: No effusions. SOFT TISSUES: No soft tissue swelling. No foreign body. OTHER: No other significant finding. IMPRESSION: 1. NEGATIVE STUDY OF THE RIGHT HAND. TECHNICAL DOCUMENTATION: JOB ID: [id number] 2010 [employer]- All Rights Reserved Reading location - IP/workstation name: [email or web address]
[2020-04-10] MEDS ORDERED: AMOXICILLIN TR/POT CLAVULANATE 875-125 MG TAB PO ONE (20:10)
[2020-04-10] MEDS ORDERED: ACETAMINOPHEN 325 MG TABLET PO ONE (20:10)
--- NOTE | 2020-04-10 20:15 | ER Document Report ---
ED Animal Bite - General Chief Complaint: Cat Bite Stated Complaint: CAT BITE/RIGHT HAND Time Seen by Provider: 04/10/20 18:58 Notes: Patient is a 20-year-old female who comes emergency department for chief complaint of cat bite to the right hand. She states that she was trying to handle a kitten which is a stray, she states that in doing so the cat bit her on her right index finger and right thumb areas. She had a small no bleeding afterwards. This happened about 3 hours ago. She did see the mom cat come looking for the kitten and she was acting normally. No other injuries or concerns reported. Patient reports she is possibly . Tetanus not up-to-date. TRAVEL OUTSIDE OF THE [place] IN LAST 30 DAYS: No - Related Data Allergies/Adverse Reactions: bee venom protein (honey bee) Allergy (Verified 04/18/19 18:31) Cephalosporins Allergy (Verified 04/18/19 18:31) peroxcide Allergy (Uncoded 04/18/19 18:31) Past Medical History - General Information source: Patient - Social History Smoking Status: Never Smoker Frequency of alcohol use: None Drug Abuse: None Lives with: Family Family History: Reviewed & Not Pertinent Patient has homicidal ideation: No Renal/ Medical History: Denies: Hx Peritoneal Dialysis - Immunizations Immunizations up to date: Yes Hx Diphtheria, Pertussis, Tetanus Vaccination: Yes Review of Systems - Review of Systems Constitutional: No symptoms reported EENT: No symptoms reported Cardiovascular: No symptoms reported Respiratory: No symptoms reported Gastrointestinal: No symptoms reported Genitourinary: No symptoms reported Female Genitourinary: No symptoms reported Musculoskeletal: See HPI Skin: See HPI Hematologic/Lymphatic: No symptoms reported Neurological/Psychological: No symptoms reported Physical Exam - Vital signs Vitals: Temp Pulse Resp BP Pulse Ox 98.5 F 105 H 18 131/57 H 98 04/10/20 18:42 04/10/20 18:42 04/10/20 18:42 04/10/20 18:42 04/10/20 18:42 - Notes Notes: GENERAL: Alert, interacts well. No acute distress. HEAD: Normocephalic, atraumatic. EYES: Pupils equal, round, and reactive to light. Extraocular movements intact. ENT: Oral mucosa moist, tongue midline. Oropharynx unremarkable. Airway patent. LUNGS: Clear to auscultation bilaterally, no wheezes, rales, or rhonchi. No respiratory distress. Non-tender chest wall. HEART: Regular rate and rhythm. No murmur ABDOMEN: Soft, non-tender. Non-distended. EXTREMITIES: Puncture wounds over the right index finger dorsally and over the volar aspect, there is also a very superficial abrasion over the right dorsal finger just past the PIP distally. Small puncture wounds of the hand posterior to this. No other injuries noted. Full range of motion of all fingers and normal strength against flexion extension. Normal capillary refill and sensation. No current bleeding wounds or any other signs of injury. BACK: no cervical, thoracic, lumbar midline tenderness. No saddle anesthesia, normal distal neurovascular exam. Moves all extremities in full range of motion. NEUROLOGICAL: Alert and oriented x3. Normal speech. Cranial nerves II through XII grossly intact. Strength 5/5 in all extremities. PSYCH: Normal affect, normal mood. SKIN: Warm, dry, normal turgor. No rashes or lesions noted. Course - Re-evaluation Re-evalutation: Patient denies any antibiotic allergies to me. She has small puncture wounds on the right index and thumb and a small superficial laceration that already closed on the dorsal aspect of the hand just distal to the PIP of the index finger. No other concerning findings noted, no severe swelling, no neurovascular deficits. X-ray is negative for foreign body. Rabies vaccine/immunoglobulin was deferred after consideration. Patient started on Augmentin, discussed care, follow-up, and return precautions. Patient states understanding and agreement. - Vital Signs Vital signs: Temp Pulse Resp BP Pulse Ox 98.2 F 92 18 109/66 98 04/10/20 20:28 04/10/20 20:28 04/10/20 20:28 04/10/20 20:28 04/10/20 20:28 Discharge - Discharge Clinical Impression: Cat bite Qualifiers: Encounter type: initial encounter Qualified Code(s): W55.01XA - Bitten by cat, initial encounter Animal bite of right hand Qualifiers: Encounter type: initial encounter Qualified Code(s): S61.451A - Open bite of right hand, initial encounter Condition: Stable Disposition: HOME, SELF-CARE Additional Instructions: The x-ray does not show any concerning findings. Keep the wound clean, clean with soap and water, keep topical antibiotic dressings over the area. Take the Augmentin antibiotic as prescribed to completion. I recommend that you take [id number] probiotics to avoid diarrhea while taking this. Take Tylenol for pain. Follow with primary care. Return for any concerning symptoms including developing severe pain, swelling, developing or spreading redness, discolored drainage, fever, or any other concerning symptoms. Prescriptions: Amoxicillin/Potassium Clav [Augmentin 875-125 Tablet] 1 tab PO BID 7 Days #14 tablet
[2020-04-10 20:38] VITALS: BP 109/66
== END 2020-04-10 20:40 | disposition home or self-care (01) ==
LOC: ER 18:27
DX: S61.451A Open bite of right hand, initial encounter (principal); W55.01XA Bitten by cat, initial encounter; Z23 Encounter for immunization
CPT/HCPCS: 99283; 90471; 73130; 90715; J3490

== ENCOUNTER 2020-05-25 20:35 | Emergency (ER) | payer SELFPAY ==
[2020-05-25 20:52] VITALS: BP 131/71
[2020-05-25] MEDS ORDERED: CIPROFLOXACIN HCL/DEXAMETH OTIC DROP 7.5 ML AD ONE (21:26)
--- NOTE | 2020-05-25 21:28 | ER Document Report ---
HPI - HPI Time Seen by Provider: 05/25/20 21:21 Pain Level: 3 Notes: 20-year-old female patient presents emergency department chief complaint of right ear pain. Patient reports pain ongoing for last 2 days. She states she tried cleaning out her ears with Q-tips. She denies any fever or chills. Denies any drainage from the area. - CONSTITUTIONAL Constitutional: DENIES: Fever, Chills - EENT EENT: REPORTS: Ear Pain. DENIES: Sore Throat, Eye problems - NEURO Neurology: DENIES: Headache, Weakness, Vision blurred, Dizzinesss / Vertigo - CARDIOVASCULAR Cardiovascular: DENIES: Chest pain - RESPIRATORY Respiratory: DENIES: Trouble Breathing, Coughing - GASTROINTESTINAL Gastrointestinal: DENIES: Abdominal Pain, Black / Bloody Stools - URINARY Urinary: DENIES: Dysuria, Urgency, Frequency - REPRODUCTIVE LMP: January 2020 Reproductive: DENIES: : - MUSCULOSKELETAL Musculoskeletal: DENIES: Extremity pain Past Medical History - General Information source: Patient - Social History Smoking Status: Never Smoker Chew tobacco use (# tins/day): No Frequency of alcohol use: None Drug Abuse: None Family History: Reviewed & Not Pertinent - Medical History Medical History: Negative Renal/ Medical History: Denies: Hx Peritoneal Dialysis Surgical Hx: Negative - Immunizations Immunizations up to date: Yes Hx Diphtheria, Pertussis, Tetanus Vaccination: Yes Vertical Provider Document - CONSTITUTIONAL Notes: PHYSICAL EXAMINATION: GENERAL: Well-appearing, well-nourished and in no acute distress. HEAD: Atraumatic, normocephalic. EYES: Pupils equal round extraocular movements intact, conjunctiva are normal. ENT: TMs unremarkable bilaterally. Right ear canal erythematous and swollen. Left canal unremarkable. Cerumen impaction noted to both. No mastoid tenderness. NECK: Normal range of motion LUNGS: No respiratory distress Musculoskeletal: Normal range of motion NEUROLOGICAL: Normal speech, normal gait. PSYCH: Normal mood, normal affect. SKIN: Warm, Dry, normal turgor, no rashes or lesions noted. - INFECTION CONTROL TRAVEL OUTSIDE OF THE [place] IN LAST 30 DAYS: No Course - Re-evaluation Re-evalutation: Patient's exam consistent with cerumen impaction and otitis externa. Patient will be provided Ciprodex drops here in the emergency department. She was counseled to not use Q-tips in her ears anymore. Once her otitis externa has resolved she will have her ears cleaned out appropriately with appropriate [id number] cleaning solution. - Vital Signs Vital signs: Temp Pulse Resp BP Pulse Ox 98.6 F 92 14 131/71 H 99 05/25/20 21:19 05/25/20 20:51 05/25/20 20:51 05/25/20 20:51 05/25/20 20:51 Discharge - Discharge Clinical Impression: Otitis externa Qualifiers: Otitis externa type: unspecified type Chronicity: acute Laterality: right Qualified Code(s): H60.501 - Unspecified acute noninfective otitis externa, right ear Condition: Stable Disposition: HOME, SELF-CARE Instructions: Otitis Externa ([facility]) Additional Instructions: Please apply 3 drops to each ear twice daily for 7 days. Do not use Q-tips in your ears anymore. Forms: Return to Work
== END 2020-05-25 21:35 | disposition home or self-care (01) ==
LOC: ER 20:35
DX: H60.501 Unspecified acute noninfective otitis externa, right ear (principal); H92.01 Otalgia, right ear
CPT/HCPCS: 99282; J3490